=== PATIENT | male | born 1995 | race Caucasian/White ===

== ENCOUNTER 2020-05-08 08:54 | Inpatient (IN) | payer MEDICAID, OTHER ==
[~2020-05-08] VITALS: Ht 167.6 cm; Wt 95.0 kg
[2020-05-08] VITALS (11 sets, daily range): BP systolic 122–142; BP diastolic 51–84
[~2020-05-08 08:54] MED LIST: HYDR-4383 PO; KETO10TA2 PO; etomidate 2mg/ml inj. ONE; rocuronium 10mg/ml inj IV ONE
--- NOTE | 2020-05-08 09:00 | NUR ---
RT at bedside,Patient desating 80's,Dr. Rios ordered narcan 0.4mg x1.
[2020-05-08] MEDS ORDERED: naloxone 2mg/2ml inj IV ONE (09:05)
[2020-05-08] MEDS ORDERED: normal saline 1000ML IV soln IVB ONE (09:05)
[2020-05-08 09:18] LABS: BASOPHILS % (AUTO) 0.5 % (0-1); EOSINOPHILS # (AUTO) 0.3 X10'3 (0-0.9); EOSINOPHILS % (AUTO) 2.8 % (0-6); HEMOGLOBIN 14.3 g/dl (14.0-17.9); LYMPHOCYTES # (AUTO) 3.5 X10'3 (1.1-4.8); LYMPHOCYTES % (AUTO) 38.4 % (21-51); MEAN CORPUSCULAR HEMOGLOBIN 30.1 PG (27.0-31.0); MEAN CORPUSCULAR HGB CONC 33.2 g/dL (33.0-36.5); MEAN CORPUSCULAR VOLUME 90.5 FL (78-98); MEAN PLATELET VOLUME 7.7 FL (7.4-10.4); MONOCYTES # (AUTO) 0.7 X10'3 (0-0.9); MONOCYTES % (AUTO) 7.5 % (2-12); NEUTROPHILS # (AUTO) 4.6 X10'3 (1.8-7.7); NEUTROPHILS % (AUTO) 50.8 % (42-75); PLATELET COUNT 289 X10'3 (140-440); RED BLOOD COUNT 4.75 X10'6 (4.70-6.10); WHITE BLOOD COUNT 9.1 X10'3 (4.5-11.0)
[2020-05-08] MEDS ORDERED: albuterol 2.5 MG/3 ML nebule NEB PRN (09:20)
--- NOTE | 2020-05-08 09:40 | NUR ---
called ct scan. ct will take patient after they take trauma alert
[2020-05-08 09:43] LABS: ALANINE AMINOTRANSFERASE 38 U/L (12-78); ALBUMIN 3.3 G/DL (3.4-5.0); ALBUMIN/GLOBULIN RATIO 0.9 (1.1-1.5); ALKALINE PHOSPHATASE 62 IU/L (46-116); ANION GAP 10 (8-16); ASPARTATE AMINO TRANSFERASE 32 U/L (10-37); BILIRUBIN,TOTAL 0.3 MG/DL (0.1-1.0); BLOOD UREA NITROGEN 16 MG/DL (7-18); BUN/CREATININE RATIO 11.3 (5.4-32.0); CALCIUM 8.2 MG/DL (8.5-10.1); CHLORIDE 102 MMOL/L (99-107); CREATININE 1.41 MG/DL (0.60-1.10); GLUCOSE 334 MG/DL (70-104); POTASSIUM 3.5 MMOL/L (3.5-5.1); SODIUM 137 MMOL/L (135-145); TOTAL CARBON DIOXIDE 24.7 MMOL/L (24-32); TOTAL PROTEIN 6.8 G/DL (6.4-8.2); eGFR 60 ML/MIN
[2020-05-08 09:47] LABS: ETHANOL < 0.010 GM/DL (0.0-0.010); TROPONIN I < 0.04 NG/ML (0.0-0.05)
[2020-05-08 09:55] LABS: CLARITY,URINE CLEAR (Clear); COLOR,URINE YELLOW (Yellow); GLUCOSE, URINE 500 mg/dl (Neg); KETONES,URINE NEGATIVE (Neg); LEUKOCYTE ESTERASE ,URINE NEGATIVE (Neg); NITRITES, URINE NEGATIVE (Neg); OCCULT BLOOD,URINE NEGATIVE (Neg); PH,URINE 6.5 (4.8-8.0); PROTEIN,URINE 100 mg/dl (Neg); UROBILINOGEN,URINE 0.2 E.U/dL (0.2-1.0)
[2020-05-08] MEDS ORDERED: ondansetron/PF 4mg/2ml inj IV STA (09:59)
[2020-05-08 10:00] LABS: URINE AMPHETAMINE SCREEN NEGATIVE (Neg); URINE BARBITUATE SCREEN NEGATIVE (Neg); URINE BENZODIAZEPINES SCREEN NEGATIVE (Neg); URINE CANNABINOID SCREEN NEGATIVE (Neg); URINE COCAINE SCREEN POSITIVE (Neg); URINE METHADONE SCREEN NEGATIVE (Neg); URINE OPIATE SCREEN POSITIVE (Neg); URINE PHENCYCLIDINE SCREEN NEGATIVE (Neg)
[2020-05-08 10:01] LABS: UA COLLECTION TYPE CLN CATCH MIDSTREAM
[2020-05-08 10:02] LABS: BACTERIA,URINE FEW /HPF (Neg); MUCUS STRANDS FEW /LPF (Neg); SQUAMOUS EPITHELIAL CELL,UR FEW /LPF (FEW); WBC,URINE 20-30 /HPF (0-4)
[2020-05-08] MEDS ORDERED: proCHLORperazine 10 MG/2 ml inj IV ONE (10:05)
--- NOTE | 2020-05-08 10:08 | NUR ---
started down the [facility]avez to take patient to ct scan and patient started vomitin ml dark green vomited with bright red appearing blood, showed dr house and he ordered antiemetics
[2020-05-08] MEDS ORDERED: pantoprazole IV 80 MG in normal saline 100ml IV soln 100 ML IV ONE ×4 (10:15)
--- NOTE | 2020-05-08 10:17 | NUR ---
DR LEIVA IN ROOM, LOOKED AT LABS INCLUDING TOX SCREEN, WILL CONSIDER MORE FLUID AND WILL LOOK AT URINE LABS AGAIN TO SEE IF ANTIBIOTICS WARRANTED BLOOD CULTURES DONE RTX IN ROOM ATTEMPTING ABG
[2020-05-08] MEDS ORDERED: pantoprazole 40MG/NS 100ML BAG 100 ML IV SCH (10:25)
[2020-05-08 10:29] LABS: PARTIAL THROMBOPLASTIN TIME 25 SECONDS (22-32)
[2020-05-08 10:31] LABS: ABG BASE EXCESS -6.4 mmol/L (-2.0-2.0); ABG HCO3 21.3 mmol/L (22.0-26.0); ABG OXYGEN SATURATION 90.8 % (94-97); ABG PCO2 (T) 50.2 mmHg (35.0-48.0); ABG PO2 (T) 66.8 mmHg (75.0-100.0); ALLEN'S TEST POSITIVE; FCOHb 3.4 % (0.0-3.9); FLOW 15 L/min; FMetHb 0.1 % (0.0-1.5); FO2Hb 87.6 % (94-97); TOTAL HEMOGLOBIN 15.6 G/dl (14.0-18.0)
[2020-05-08] MEDS ORDERED: etomidate 2mg/ml inj. IV ONE (10:35)
--- NOTE | 2020-05-08 10:37 | NUR ---
DR LEIVA IN ROOM TO INTUBATE
[2020-05-08] MEDS ORDERED: normal saline 1000ml 1,000 ML IV ONE ×3 (10:50)
--- NOTE | 2020-05-08 10:52 | NUR ---
RESPIRATORY INITIATED PHONE CALL TO , PATIENT SPOKE TO DR LEIVA WAS ABOUT TO INTUBATE THE PATIENT, I SPOKE TO THEN, ELISEO MERCADO AT BEDSIDE AND SPOKE TO DR LEIVA AND WE ARE HOLDING OFF INTUBATION AT THIS TIME, WILL DO A NARCAN DRIP AND OBSERVE PATIENT
--- NOTE | 2020-05-08 10:56 | NUR ---
ROGELIO AT BEDSIDE
--- NOTE | 2020-05-08 10:58 | NUR ---
rtX AT BEDSIDE PUTTING PATIENT ON NC
[2020-05-08] MEDS ORDERED: pantoprazole 40 MG vial IV ONE (11:00)
[2020-05-08] MEDS ORDERED: naloxone 0.4 mg/ml inj IV ONE (11:00)
[2020-05-08] MEDS ORDERED: sodium phosphate inj. 15 MMOL in dextrose 5%-water 250 ML IV PRN (11:15)
[2020-05-08] MEDS ORDERED: magnesium 2GM in 50ml NS 50 ML IV PRN (11:15)
[2020-05-08] MEDS ORDERED: magnesium hydroxide 30ml (MOM) UD suspension PO PRN (11:15)
[2020-05-08] MEDS ORDERED: sodium phosphate inj. 30 MMOL in dextrose 5%-water 250 ML IV PRN (11:15)
[2020-05-08] MEDS ORDERED: ondansetron/PF 4mg/2ml inj IV PRN (11:15)
[2020-05-08] MEDS ORDERED: clindamycin 600mg/D5W 50ml 50 ML IV ONE (11:15)
[2020-05-08] MEDS ORDERED: magnesium Cl slow-release 64mg tablet PO PRN (11:15)
[2020-05-08] MEDS ORDERED: Neutra Phos packet PO PRN (11:15)
[2020-05-08] MEDS: K, MAG and/or Phos replacement - Verify level? MC SCH (11:15)
[2020-05-08] MEDS ORDERED: potassium Cl 20 mEq SR tablet PO PRN ×2 (11:15)
[2020-05-08] MEDS ORDERED: magnesium 4gm in 100ml NS 100 ML IV PRN (11:15)
[2020-05-08] MEDS ORDERED: potassium Cl 40MEQ/1/2NS 520ml 520 ML IV PRN ×2 (11:15)
[2020-05-08] MEDS ORDERED: HYDROcodone/acetaminophen 10/325mg tab PO PRN (11:15)
[2020-05-08] MEDS ORDERED: NO HOME MEDS (11:28)
[2020-05-08] MEDS ORDERED: hydrALAZINE 20mg/ml inj. IV PRN (11:35)
[2020-05-08] MEDS ORDERED: proMETHazine 25mg tablet PO ONE (11:40)
[2020-05-08] MEDS ORDERED: dextrose 50%-water 50ml dispensing syringe IV PRN ×2 (11:45)
[2020-05-08] MEDS ORDERED: dextrose ORAL solution 15 GM/59 ML bottle PO PRN ×2 (11:45)
[2020-05-08] MEDS ORDERED: glucagon, human recombinant 1mg kit SUBCUT PRN (11:45)
[2020-05-08] MEDS ORDERED: MESSAGE TO PHARMACY PO ONE (11:45)
[2020-05-08] MEDS ORDERED: insulin Lispro (HumaLOG) vial - multi-dose SQ SCH (11:45)
[2020-05-08] MEDS: naloxone 2mg/2ml inj 2 MG in normal saline 500ml IV soln 498 ML IV SCH ×2 (11:59→13:44)
--- NOTE | 2020-05-08 12:06 | NUR ---
ELISEO GONZALEZ AWARE AND VISUALIZED ARM MOTTLING
[2020-05-08 12:15] LABS: AMYLASE 51 U/L (25-115); LIPASE 58 U/L (73-393)
--- NOTE | 2020-05-08 12:17 | NUR ---
REPORT CALLED TO [facility] ICU. PATIETN TO GO TO ROOM 2044 MONITORED WITH RN AND WITH ALL BELONGINGS (SOCKS AND SHORTS). PATIENT HAS NARCAN GTT RUNNING AT 0.1 MG/HR TO RIGHT HAND PIV ALONG WITH CLEOCIN IV TO LEFT AC PROTONIX GTT RUNNING AT 8MG/HR 4 LITERS OF NS IN AND SECOND LACTATE PULLED FROM LEFT AC LINE AND IS PENDING
[2020-05-08] MEDS ORDERED: nicotine 21mg patch - 24 hr TD ONE (12:20)
--- NOTE | 2020-05-08 12:22 | NUR ---
FORENSIC ACCOUNTANT RAMONA AWARE THAT I AM TRANSPORTING PATIENT TO ICU
[2020-05-08] MEDS: ipratropium/albuterol 3ml nebule NEB SCH ×3 (13:00→20:21)
[2020-05-08] MEDS: normal saline 1000ml 1,000 ML IV SCH ×2 (13:43→21:15)
[2020-05-08] MEDS: pantoprazole 40MG/NS 100ML BAG 100 ML IV SCH ×2 (14:59→20:26)
[2020-05-08] MEDS: clindamycin 600mg/D5W 50ml 50 ML IV SCH ×2 (14:59→20:26)
[2020-05-08 15:11] LABS: ABG BASE EXCESS 0.5 mmol/L (-2.0-2.0); ABG OXYGEN SATURATION 88.7 % (94-97); ABG PCO2 (T) 47.4 mmHg (35.0-48.0); ALLEN'S TEST POSITIVE; FCOHb 1.4 % (0.0-3.9); FLOW 10 L/min; FMetHb 0.2 % (0.0-1.5); FO2Hb 87.3 % (94-97); PATIENT TEMPERATURE 38.4; TOTAL HEMOGLOBIN 14.6 G/dl (14.0-18.0)
[2020-05-08] MEDS: acetaminophen 325mg tablet PO PRN (16:05)
[2020-05-08] MEDS: heparin, porcine 5000 units/ml vial SQ SCH (20:26)
[2020-05-08] MEDS ORDERED: insulin glargine (Lantus) pen - multi-dose SQ SCH (21:00)
--- NOTE | 2020-05-08 21:00 | NUR ---
THIS RN RECEIVED REPORT FROM ONIEL ANGELA, [facility].
[2020-05-09] VITALS (11 sets, daily range): BP systolic 122–141; BP diastolic 65–84
[2020-05-09] MEDS: normal saline 1000ml 1,000 ML IV SCH (00:10)
[2020-05-09] MEDS: pantoprazole 40MG/NS 100ML BAG 100 ML IV SCH ×2 (01:10→07:46)
[2020-05-09] MEDS: clindamycin 600mg/D5W 50ml 50 ML IV SCH ×2 (01:12→07:47)
[2020-05-09 06:23] LABS: BASOPHILS % (AUTO) 0.2 % (0-1); EOSINOPHILS # (AUTO) 0.1 X10'3 (0-0.9); EOSINOPHILS % (AUTO) 0.8 % (0-6); HEMATOCRIT 36.9 % (42.0-52.0); HEMOGLOBIN 12.5 g/dl (14.0-17.9); LYMPHOCYTES # (AUTO) 1.1 X10'3 (1.1-4.8); LYMPHOCYTES % (AUTO) 8.1 % (21-51); MEAN CORPUSCULAR HEMOGLOBIN 29.8 PG (27.0-31.0); MEAN CORPUSCULAR HGB CONC 33.8 g/dL (33.0-36.5); MEAN CORPUSCULAR VOLUME 88.2 FL (78-98); MEAN PLATELET VOLUME 8.5 FL (7.4-10.4); MONOCYTES # (AUTO) 0.9 X10'3 (0-0.9); MONOCYTES % (AUTO) 7.1 % (2-12); NEUTROPHILS # (AUTO) 11.2 X10'3 (1.8-7.7); NEUTROPHILS % (AUTO) 83.8 % (42-75); PLATELET COUNT 229 X10'3 (140-440); RED BLOOD COUNT 4.18 X10'6 (4.70-6.10); RED CELL DISTRIBUTION WIDTH 13.8 % (11.5-14.5); WHITE BLOOD COUNT 13.4 X10'3 (4.5-11.0)
[2020-05-09 06:33] LABS: ALANINE AMINOTRANSFERASE 33 U/L (12-78); ALBUMIN 3.2 G/DL (3.4-5.0); ALBUMIN/GLOBULIN RATIO 0.9 (1.1-1.5); ALKALINE PHOSPHATASE 39 IU/L (46-116); ANION GAP 11 (8-16); ASPARTATE AMINO TRANSFERASE 36 U/L (10-37); BILIRUBIN,TOTAL 1.7 MG/DL (0.1-1.0); BLOOD UREA NITROGEN 11 MG/DL (7-18); BUN/CREATININE RATIO 12.5 (5.4-32.0); CALCIUM 8.9 MG/DL (8.5-10.1); CHLORIDE 105 MMOL/L (99-107); CREATININE 0.88 MG/DL (0.60-1.10); GLUCOSE 104 MG/DL (70-104); MAGNESIUM 1.7 MG/DL (1.5-2.4); PHOSPHORUS 1.9 MG/DL (2.3-4.5); POTASSIUM 3.6 MMOL/L (3.5-5.1); SODIUM 141 MMOL/L (135-145); TOTAL CARBON DIOXIDE 25.2 MMOL/L (24-32); TOTAL PROTEIN 6.6 G/DL (6.4-8.2); eGFR > 90 ML/MIN
[2020-05-09] MEDS: ipratropium/albuterol 3ml nebule NEB SCH (07:18)
[2020-05-09] MEDS: heparin, porcine 5000 units/ml vial SQ SCH (07:50)
[2020-05-09] MEDS ORDERED: nicotine 21mg patch - 24 hr TD SCH (08:00)
[2020-05-09] MEDS ORDERED: CefTRIAXone 2gm/D5W 50ml BAG 50 ML IV SCH (08:00)
[2020-05-09] MEDS: acetaminophen 325mg tablet PO PRN (08:05)
[2020-05-09] MEDS: K, MAG and/or Phos replacement - Verify level? MC SCH (08:30)
[2020-05-09] MEDS ORDERED: AMOX-422 PO ×2 (10:22→14:41)
== END 2020-05-09 12:30 | disposition home or self-care (01) | DRG 812 ==
LOC: ER 08:54 → ICU 2S 11:09
PROVIDERS: ADMIT Internal Medicine Critical Care Medicine; ATTEND Internal Medicine Critical Care Medicine
PROC: 5A0935A Assistance with Respiratory Ventilation, Less than 24 Consecutive Hours, High Flow/Velocity Cannula (ICD-10-PCS; principal; 2020-05-08)
PROC: 5A09357 Assistance with Respiratory Ventilation, Less than 24 Consecutive Hours, Continuous Positive Airway Pressure (ICD-10-PCS; 2020-05-08)
PROC: 5A09357 Assistance with Respiratory Ventilation, Less than 24 Consecutive Hours, Continuous Positive Airway Pressure (ICD-10-PCS; 2020-05-09)
DX: T40.2X1A Poisoning by other opioids, accidental (unintentional), initial encounter (principal); F17.200 Nicotine dependence, unspecified, uncomplicated; F41.9 Anxiety disorder, unspecified; I10 Essential (primary) hypertension; J96.01 Acute respiratory failure with hypoxia; G89.29 Other chronic pain; F19.10 Other psychoactive substance abuse, uncomplicated; T17.908A Unspecified foreign body in respiratory tract, part unspecified causing other injury, initial encounter; J69.0 Pneumonitis due to inhalation of food and vomit; I95.9 Hypotension, unspecified; J96.02 Acute respiratory failure with hypercapnia; K04.7 Periapical abscess without sinus; K92.2 Gastrointestinal hemorrhage, unspecified; Z20.828 Contact with and (suspected) exposure to other viral communicable diseases; N39.0 Urinary tract infection, site not specified; Y92.89 Other specified places as the place of occurrence of the external cause; Z88.8 Allergy status to other drugs, medicaments and biological substances
CPT/HCPCS: 36415; 36600; 70450; 71045; 80053; 80305; 80320; 81001; 82150; 82803; 82948; 83036; 83605; 83690; 83735; 84100; 84145; 84443; 84484; 85018; 85025; 85610; 85730; 86885; 86900; 86901; 87040; 87088; 87635; 93005; 94002; 94640; 94660; 94760; 96374; 99291; 99292; C9113; C9803; G0378; J0696; J0780; J1644; J1815; J2310; J2405; J3490; J7030; J7040; Q0169

== ENCOUNTER 2020-09-21 11:42 | Emergency (ER) | payer MEDICAID ==
[~2020-09-21] VITALS: Ht 185.4 cm; Wt 104.5 kg
[~2020-09-21 11:42] MED LIST changes: -HYDR-4383 PO; -KETO10TA2 PO; +NO HOME MEDS; -etomidate 2mg/ml inj. ONE; -rocuronium 10mg/ml inj IV ONE
[2020-09-21 12:10] LABS: BASOPHILS % (AUTO) 0.5 % (0-1); EOSINOPHILS # (AUTO) 0.1 X10'3 (0-0.9); EOSINOPHILS % (AUTO) 1.5 % (0-6); HEMATOCRIT 43.1 % (42.0-52.0); HEMOGLOBIN 14.4 g/dl (14.0-17.9); LYMPHOCYTES % (AUTO) 29.6 % (21-51); MEAN CORPUSCULAR HEMOGLOBIN 29.5 PG (27.0-31.0); MEAN CORPUSCULAR HGB CONC 33.4 g/dL (33.0-36.5); MEAN CORPUSCULAR VOLUME 88.5 FL (78-98); MEAN PLATELET VOLUME 8.1 FL (7.4-10.4); MONOCYTES # (AUTO) 0.6 X10'3 (0-0.9); MONOCYTES % (AUTO) 8.6 % (2-12); NEUTROPHILS % (AUTO) 59.8 % (42-75); PLATELET COUNT 269 X10'3 (140-440); RED BLOOD COUNT 4.87 X10'6 (4.70-6.10); RED CELL DISTRIBUTION WIDTH 12.9 % (11.5-14.5); WHITE BLOOD COUNT 6.8 X10'3 (4.5-11.0)
[2020-09-21 12:30] LABS: ALANINE AMINOTRANSFERASE 25 U/L (12-78); ALBUMIN 4.4 G/DL (3.4-5.0); ALBUMIN/GLOBULIN RATIO 1.2 (1.1-1.5); ALKALINE PHOSPHATASE 63 IU/L (46-116); ANION GAP 10 (8-16); ASPARTATE AMINO TRANSFERASE 17 U/L (10-37); BILIRUBIN,TOTAL 0.9 MG/DL (0.1-1.0); BLOOD UREA NITROGEN 23 MG/DL (7-18); BUN/CREATININE RATIO 22.3 (5.4-32.0); CALCIUM 10.1 MG/DL (8.5-10.1); CHLORIDE 102 MMOL/L (99-107); CREATININE 1.03 MG/DL (0.60-1.10); GLUCOSE 101 MG/DL (70-104); POTASSIUM 3.6 MMOL/L (3.5-5.1); SODIUM 137 MMOL/L (135-145); TOTAL CARBON DIOXIDE 24.9 MMOL/L (24-32); eGFR 87 ML/MIN
[2020-09-21 12:58] VITALS: BP 135/65
== END 2020-09-21 13:00 | disposition home or self-care (01) ==
LOC: ER 11:42
DX: R00.2 Palpitations (principal); E86.0 Dehydration; F41.9 Anxiety disorder, unspecified; G89.29 Other chronic pain; F12.90 Cannabis use, unspecified, uncomplicated; Z72.89 Other problems related to lifestyle; Z98.890 Other specified postprocedural states; Z79.899 Other long term (current) drug therapy; Z88.8 Allergy status to other drugs, medicaments and biological substances; Z87.891 Personal history of nicotine dependence
CPT/HCPCS: 36415; 71045; 80053; 84484; 85025; 93005; 99285